=== PATIENT | female | born 1995 | race Caucasian/White ===

== ENCOUNTER 2018-10-27 15:48 | Emergency (ER) | payer BC ==
[~2018-10-27] VITALS: Ht 149.9 cm; Wt 71.0 kg
[~2018-10-27 15:48] MED LIST: BIRTH CONTROL PO; MOT200T PO
[2018-10-27 16:27] LABS: BASOPHILS % (AUTO) 0.5 % (0-1); EOSINOPHILS # (AUTO) 0.1 X10'3 (0-0.9); EOSINOPHILS % (AUTO) 2.1 % (0-6); HEMATOCRIT 41.9 % (35.0-45.0); HEMOGLOBIN 14.3 g/dl (12.0-16.0); LYMPHOCYTES # (AUTO) 1.9 X10'3 (1.1-4.8); LYMPHOCYTES % (AUTO) 31.1 % (21-51); MEAN CORPUSCULAR HEMOGLOBIN 31.4 PG (27.0-31.0); MEAN CORPUSCULAR HGB CONC 34.2 g/dL (33.0-36.5); MEAN CORPUSCULAR VOLUME 91.9 FL (78-98); MONOCYTES # (AUTO) 0.3 X10'3 (0-0.9); MONOCYTES % (AUTO) 4.8 % (2-12); NEUTROPHILS # (AUTO) 3.8 X10'3 (1.8-7.7); NEUTROPHILS % (AUTO) 61.5 % (42-75); PLATELET COUNT 255 X10'3 (140-440); RED BLOOD COUNT 4.56 X10'6 (4.20-5.60); RED CELL DISTRIBUTION WIDTH 12.6 % (11.5-14.5); WHITE BLOOD COUNT 6.2 X10'3 (4.5-11.0)
[2018-10-27 16:42] LABS: ALANINE AMINOTRANSFERASE 28 U/L (12-78); ALBUMIN 4.1 G/DL (3.4-5.0); ALBUMIN/GLOBULIN RATIO 1.1 (1.1-1.5); ALKALINE PHOSPHATASE 53 IU/L (46-116); ANION GAP 13 (8-16); ASPARTATE AMINO TRANSFERASE 16 U/L (10-37); BILIRUBIN,TOTAL 0.6 MG/DL (0.1-1.0); BLOOD UREA NITROGEN 8 MG/DL (7-18); CALCIUM 9.2 MG/DL (8.5-10.1); CHLORIDE 103 MMOL/L (99-107); GLUCOSE 138 MG/DL (70-104); POTASSIUM 3.3 MMOL/L (3.5-5.1); SODIUM 140 MMOL/L (135-145); TOTAL PROTEIN 7.8 G/DL (6.4-8.2); eGFR 90 ML/MIN
[2018-10-27 17:33] LABS: CLARITY,URINE SLIGHTLY CLOUDY (Clear); COLOR,URINE YELLOW (Yellow); GLUCOSE, URINE 250 mg/dl (Neg); KETONES,URINE TRACE mg/dl (Neg); LEUKOCYTE ESTERASE ,URINE NEGATIVE (Neg); NITRITES, URINE NEGATIVE (Neg); OCCULT BLOOD,URINE MODERATE (Neg); PROTEIN,URINE TRACE mg/dl (Neg); URINE HCG NEGATIVE (NEG); UROBILINOGEN,URINE 0.2 E.U/dL (0.2-1.0)
[2018-10-27 17:36] LABS: UA COLLECTION TYPE CLN CATCH MIDSTREAM
[2018-10-27 17:38] LABS: BACTERIA,URINE 3+ /HPF (Neg); MUCUS STRANDS MANY /LPF (Neg); RENAL CELLS, URINE FEW /HPF; SQUAMOUS EPITHELIAL CELL,UR MANY /LPF (FEW); WBC,URINE 0-4 /HPF (0-4)
--- NOTE | 2018-10-27 17:39 | NUR ---
pt to fast track for pelvic exam.
[2018-10-27] MEDS ORDERED: normal saline 1000ML IV soln IVB ONE (18:20)
[2018-10-27] MEDS ORDERED: ibuprofen tablet 400 MG TABLET PO ONE (18:45)
[2018-10-27 19:12] LABS: URINE AMPHETAMINE SCREEN NEGATIVE (Neg); URINE BARBITUATE SCREEN NEGATIVE (Neg); URINE BENZODIAZEPINES SCREEN NEGATIVE (Neg); URINE CANNABINOID SCREEN POSITIVE (Neg); URINE COCAINE SCREEN NEGATIVE (Neg); URINE METHADONE SCREEN NEGATIVE (Neg); URINE OPIATE SCREEN NEGATIVE (Neg); URINE PHENCYCLIDINE SCREEN NEGATIVE (Neg)
[2018-10-27] MEDS ORDERED: ondansetron/PF 4mg/2ml inj IV ONE (20:45)
[2018-10-27] MEDS ORDERED: CEPH250T PO (22:14)
[2018-10-27 22:28] VITALS: BP 118/74
== END 2018-10-27 22:36 | disposition home or self-care (01) ==
LOC: ER 15:49
DX: N89.8 Other specified noninflammatory disorders of vagina (principal); R10.32 Left lower quadrant pain; Z79.899 Other long term (current) drug therapy
CPT/HCPCS: 36415; 71045; 76830; 76856; 80053; 80305; 81001; 81025; 83605; 84145; 85025; 85610; 87040; 87210; 87491; 87591; 96374; 99284; J2405; J7030

== ENCOUNTER 2019-02-27 10:15 | Emergency (ER) | payer BC ==
[~2019-02-27] VITALS: Ht 149.9 cm; Wt 72.7 kg
[2019-02-27 10:40] VITALS: BP 142/82
[2019-02-27] MEDS ORDERED: LORazepam 2 mg/ml vial IM ONE (11:00)
[2019-02-27] MEDS ORDERED: aspirin 81mg tab.chew PO ONE (11:20)
[2019-02-27 11:52] LABS: BASOPHILS % (AUTO) 0.4 % (0-1); EOSINOPHILS # (AUTO) 0.3 X10'3 (0-0.9); EOSINOPHILS % (AUTO) 4.5 % (0-6); HEMATOCRIT 41.4 % (35.0-45.0); HEMOGLOBIN 14.3 g/dl (12.0-16.0); LYMPHOCYTES # (AUTO) 1.7 X10'3 (1.1-4.8); LYMPHOCYTES % (AUTO) 25.9 % (21-51); MEAN CORPUSCULAR HEMOGLOBIN 31.4 PG (27.0-31.0); MEAN CORPUSCULAR HGB CONC 34.5 g/dL (33.0-36.5); MEAN CORPUSCULAR VOLUME 90.9 FL (78-98); MEAN PLATELET VOLUME 7.9 FL (7.4-10.4); MONOCYTES # (AUTO) 0.4 X10'3 (0-0.9); NEUTROPHILS # (AUTO) 4.1 X10'3 (1.8-7.7); NEUTROPHILS % (AUTO) 63.2 % (42-75); PLATELET COUNT 268 X10'3 (140-440); RED BLOOD COUNT 4.56 X10'6 (4.20-5.60); RED CELL DISTRIBUTION WIDTH 12.9 % (11.5-14.5); WHITE BLOOD COUNT 6.4 X10'3 (4.5-11.0)
[2019-02-27 12:05] LABS: ALANINE AMINOTRANSFERASE 30 U/L (12-78); ALBUMIN 3.8 G/DL (3.4-5.0); ALKALINE PHOSPHATASE 59 IU/L (46-116); ANION GAP 9 (8-16); ASPARTATE AMINO TRANSFERASE 18 U/L (10-37); BILIRUBIN,TOTAL 0.4 MG/DL (0.1-1.0); BLOOD UREA NITROGEN 12 MG/DL (7-18); BUN/CREATININE RATIO 12.9 (6.6-38.0); CALCIUM 9.3 MG/DL (8.5-10.1); CHLORIDE 105 MMOL/L (99-107); CREATININE 0.93 MG/DL (0.40-0.90); GLUCOSE 108 MG/DL (70-104); MAGNESIUM 1.8 MG/DL (1.5-2.4); POTASSIUM 3.9 MMOL/L (3.5-5.1); SODIUM 140 MMOL/L (135-145); TOTAL CARBON DIOXIDE 25.8 MMOL/L (24-32); TOTAL PROTEIN 7.8 G/DL (6.4-8.2); eGFR 75 ML/MIN
[2019-02-27] MEDS ORDERED: LORazepam 1 MG tablet PO ONE (12:30)
== END 2019-02-27 12:40 | disposition home or self-care (01) ==
LOC: ER 10:16
DX: F41.9 Anxiety disorder, unspecified (principal); R00.0 Tachycardia, unspecified; F41.0 Panic disorder [episodic paroxysmal anxiety]; F31.9 Bipolar disorder, unspecified; Z79.899 Other long term (current) drug therapy
CPT/HCPCS: 36415; 71045; 80053; 83735; 84484; 85025; 93005; 96372; 99284; J2060

== ENCOUNTER 2019-12-08 14:26 | Emergency (ER) | payer BC ==
[~2019-12-08] VITALS: Ht 149.9 cm; Wt 93.0 kg
[2019-12-08 14:35] VITALS: BP 150/95
[2019-12-08 15:31] LABS: CLARITY,URINE CLEAR (Clear); COLOR,URINE YELLOW (Yellow); GLUCOSE, URINE NEGATIVE (Neg); KETONES,URINE NEGATIVE (Neg); LEUKOCYTE ESTERASE ,URINE NEGATIVE (Neg); NITRITES, URINE NEGATIVE (Neg); OCCULT BLOOD,URINE LARGE (Neg); PROTEIN,URINE NEGATIVE (Neg); UROBILINOGEN,URINE 0.2 E.U/dL (0.2-1.0)
[2019-12-08 15:32] LABS: URINE HCG NEGATIVE (NEG)
[2019-12-08 15:33] LABS: UA COLLECTION TYPE CLN CATCH MIDSTREAM
[2019-12-08 15:38] LABS: MUCUS STRANDS MODERATE /LPF (Neg); SQUAMOUS EPITHELIAL CELL,UR MODERATE /LPF (FEW)
[2019-12-08 15:40] LABS: RBC,URINE 50-100 /HPF (0-2)
[2019-12-08 15:43] LABS: BACTERIA,URINE FEW /HPF (Neg); WBC,URINE 0-4 /HPF (0-4)
[2019-12-08] MEDS ORDERED: IBUP-1986 PO (16:26)
[2019-12-08] MEDS ORDERED: FLO0.4C PO (16:26)
[2019-12-08] MEDS ORDERED: HYDR-4353 PO (16:26)
[2019-12-08 16:35] LABS: BASOPHILS % (AUTO) 0.3 % (0-1); EOSINOPHILS # (AUTO) 0.1 X10'3 (0-0.9); EOSINOPHILS % (AUTO) 1.8 % (0-6); HEMATOCRIT 40.6 % (35.0-45.0); HEMOGLOBIN 13.7 g/dl (12.0-16.0); LYMPHOCYTES # (AUTO) 1.5 X10'3 (1.1-4.8); LYMPHOCYTES % (AUTO) 19.4 % (21-51); MEAN CORPUSCULAR HGB CONC 33.8 g/dL (33.0-36.5); MEAN CORPUSCULAR VOLUME 88.8 FL (78-98); MEAN PLATELET VOLUME 7.8 FL (7.4-10.4); MONOCYTES # (AUTO) 0.3 X10'3 (0-0.9); MONOCYTES % (AUTO) 4.5 % (2-12); NEUTROPHILS # (AUTO) 5.6 X10'3 (1.8-7.7); PLATELET COUNT 281 X10'3 (140-440); RED BLOOD COUNT 4.58 X10'6 (4.20-5.60); RED CELL DISTRIBUTION WIDTH 12.1 % (11.5-14.5); WHITE BLOOD COUNT 7.6 X10'3 (4.5-11.0)
[2019-12-08 16:45] LABS: ALANINE AMINOTRANSFERASE 21 U/L (12-78); ALBUMIN 4.1 G/DL (3.4-5.0); ALBUMIN/GLOBULIN RATIO 1.2 (1.1-1.5); ALKALINE PHOSPHATASE 89 IU/L (46-116); ANION GAP 7 (8-16); ASPARTATE AMINO TRANSFERASE 11 U/L (10-37); BILIRUBIN,TOTAL 0.3 MG/DL (0.1-1.0); BLOOD UREA NITROGEN 10 MG/DL (7-18); BUN/CREATININE RATIO 10.9 (6.6-38.0); CALCIUM 9.4 MG/DL (8.5-10.1); CHLORIDE 103 MMOL/L (99-107); CREATININE 0.92 MG/DL (0.40-0.90); GLUCOSE 93 MG/DL (70-104); POTASSIUM 3.9 MMOL/L (3.5-5.1); SODIUM 139 MMOL/L (135-145); TOTAL CARBON DIOXIDE 28.9 MMOL/L (24-32); TOTAL PROTEIN 7.6 G/DL (6.4-8.2); eGFR 76 ML/MIN
[2019-12-08] MEDS ORDERED: ketorolac trometh. 30mg/ml inj. IM ONE (16:55)
== END 2019-12-08 18:14 | disposition home or self-care (01) ==
LOC: ER 14:27
DX: R10.9 Unspecified abdominal pain (principal); R31.9 Hematuria, unspecified; F41.9 Anxiety disorder, unspecified; F31.9 Bipolar disorder, unspecified; R11.0 Nausea; Z79.899 Other long term (current) drug therapy
CPT/HCPCS: 36415; 74176; 80053; 81001; 81025; 85025; 96372; 99284; J1885

== ENCOUNTER 2019-12-12 04:16 | Emergency (ER) | payer BC ==
[~2019-12-12] VITALS: Ht 149.9 cm; Wt 93.2 kg
[~2019-12-12 04:16] MED LIST changes: +FLO0.4C PO; +HYDR-4353 PO; +IBUP-1986 PO
[2019-12-12 04:19] VITALS: BP 129/99
[2019-12-12] MEDS ORDERED: ondansetron 4mg rapidly disintigrating tab PO ONE (04:25)
[2019-12-12] MEDS ORDERED: morphine 4 MG/ML inj SYRINge IM ONE (04:25)
--- NOTE | 2019-12-12 05:00 | NUR ---
provided pt with glass of water. pt reports no nausea and was able to drink water without issue. will continue to monitor
== END 2019-12-12 05:24 | disposition home or self-care (01) ==
LOC: ER 04:16
DX: N23 Unspecified renal colic (principal); F41.9 Anxiety disorder, unspecified; F31.9 Bipolar disorder, unspecified; Z79.899 Other long term (current) drug therapy
CPT/HCPCS: 96372; 99283; J2270

== ENCOUNTER 2020-08-18 03:57 | Emergency (ER) | payer BC ==
[~2020-08-18] VITALS: Ht 149.9 cm; Wt 95.0 kg
[~2020-08-18 03:57] MED LIST changes: -FLO0.4C PO; -HYDR-4353 PO
[2020-08-18 04:47] VITALS: BP 118/86
== END 2020-08-18 04:48 | disposition home or self-care (01) ==
LOC: ER 03:57
DX: R00.2 Palpitations (principal); R06.02 Shortness of breath; R42 Dizziness and giddiness; F41.9 Anxiety disorder, unspecified; F31.9 Bipolar disorder, unspecified; Z87.442 Personal history of urinary calculi; Z79.899 Other long term (current) drug therapy
CPT/HCPCS: 71045; 93005; 99283

== ENCOUNTER 2021-07-13 16:51 | Emergency (ER) | payer BC ==
[~2021-07-13] VITALS: Ht 149.9 cm; Wt 95.0 kg
[2021-07-13] MEDS ORDERED: ibuprofen tablet 400 MG TABLET PO ONE (17:25)
[2021-07-13 17:53] LABS: BASOPHILS % (AUTO) 0.5 % (0-1); EOSINOPHILS # (AUTO) 0.1 X10'3 (0-0.9); EOSINOPHILS % (AUTO) 0.9 % (0-6); HEMATOCRIT 40.8 % (35.0-45.0); HEMOGLOBIN 14.1 g/dl (12.0-16.0); LYMPHOCYTES # (AUTO) 1.9 X10'3 (1.1-4.8); MEAN CORPUSCULAR HEMOGLOBIN 30.6 PG (27.0-31.0); MEAN CORPUSCULAR HGB CONC 34.5 g/dL (33.0-36.5); MEAN CORPUSCULAR VOLUME 88.5 FL (78-98); MEAN PLATELET VOLUME 7.8 FL (7.4-10.4); MONOCYTES # (AUTO) 0.4 X10'3 (0-0.9); MONOCYTES % (AUTO) 5.8 % (2-12); NEUTROPHILS # (AUTO) 5.3 X10'3 (1.8-7.7); NEUTROPHILS % (AUTO) 67.8 % (42-75); PLATELET COUNT 297 X10'3 (140-440); RED BLOOD COUNT 4.61 X10'6 (4.20-5.60); RED CELL DISTRIBUTION WIDTH 13.7 % (11.5-14.5); WHITE BLOOD COUNT 7.8 X10'3 (4.5-11.0)
[2021-07-13 18:06] LABS: URINE HCG NEGATIVE (NEG)
[2021-07-13 18:14] LABS: CLARITY,URINE CLOUDY (Clear); COLOR,URINE YELLOW (Yellow); GLUCOSE, URINE NEGATIVE (Neg); KETONES,URINE TRACE mg/dl (Neg); LEUKOCYTE ESTERASE ,URINE NEGATIVE (Neg); NITRITES, URINE NEGATIVE (Neg); OCCULT BLOOD,URINE LARGE (Neg); PH,URINE 5.5 (4.8-8.0); PROTEIN,URINE NEGATIVE (Neg); UROBILINOGEN,URINE 0.2 E.U/dL (0.2-1.0)
[2021-07-13 18:18] LABS: UA COLLECTION TYPE CLN CATCH MIDSTREAM
[2021-07-13 18:26] LABS: MUCUS STRANDS FEW /LPF (Neg); SQUAMOUS EPITHELIAL CELL,UR MODERATE /LPF (FEW)
[2021-07-13 18:27] LABS: BACTERIA,URINE FEW /HPF (Neg); RBC,URINE 50-100 /HPF (0-2); WBC,URINE 0-4 /HPF (0-4)
[2021-07-13] MEDS ORDERED: MEDR10TA10 PO (19:20)
[2021-07-13 19:32] VITALS: BP 140/80
== END 2021-07-13 19:35 | disposition home or self-care (01) ==
LOC: ER 16:53
DX: N92.0 Excessive and frequent menstruation with regular cycle (principal); R00.0 Tachycardia, unspecified; R53.1 Weakness; F41.9 Anxiety disorder, unspecified; F31.9 Bipolar disorder, unspecified; Z87.442 Personal history of urinary calculi; Z79.899 Other long term (current) drug therapy
CPT/HCPCS: 36415; 81001; 81025; 85025; 99283